=== PATIENT | male | born 1985 | race Caucasian/White ===

== ENCOUNTER 2022-02-17 12:16 | Emergency (ER) | payer OTHER ==
[~2022-02-17] VITALS: Ht 175.3 cm; Wt 73.5 kg
[2022-02-17] MEDS ORDERED: LANTUS SOL100 UNIT/1 (12:38)
== END 2022-02-17 14:43 | disposition home or self-care (01) ==
LOC: ER 12:16
DX: T59.891A Toxic effect of other specified gases, fumes and vapors, accidental (unintentional), initial encounter (principal); Y92.813 Airplane as the place of occurrence of the external cause; E11.9 Type 2 diabetes mellitus without complications; Z79.4 Long term (current) use of insulin